=== PATIENT | male | born 1950 | race Caucasian/White ===

== ENCOUNTER → 2018-01-28 08:59 | Outpatient (CLI) | payer OTHER, SELFPAY ==
--- NOTE | 2018-01-28 | DI.RAD.S_ITS ---
PROCEDURE: FL WRIST INJECTION MR/CT RT INDICATIONS: OSTEOARTHRITIS TECHNIQUE: After informed consent had been obtained, the wrist was examined fluoroscopically, and a site chosen for injection of the radiocarpal compartment from a dorsal approach. Skin was prepped and draped in a sterile fashion and 1% lidocaine infiltrated from the skin down to the articular surface. A hypodermic needle was then introduced into the articular space and a modest amount of contrast medium was instilled confirming intra-articular needle tip placement. This was followed by approximately 4 mL of a dilute gadolinium solution. Needle was removed and dressing was applied. The patient experienced no complications throughout the procedure and left the fluoroscopic suite in no apparent distress. FINDINGS: A single fluoroscopic spot image demonstrates intra-articular location to injected iodinated contrast. IMPRESSION: Successful fluoroscopic-guided administration of dilute Gadolinium solution for wrist MR arthrogram. Dictated by: Reinier Brian M.D. on 01/28/2018 at 10:34 Approved by: Reinier Brian M.D. on 01/28/2018 at 10:34
--- NOTE | 2018-01-28 | DI.MRI.S_ITS ---
PROCEDURE: MR WRIST RT W CON INDICATIONS: OSTEOARTHRITIS TECHNIQUE: After the administration of 3-4 mL of dilute intra-articular Gadolinium contrast into the radiocarpal compartment, coronal T1 spin echo with fat saturation and T2 fast spin echo with fat saturation, axial T1 spin echo and T2 fast spin echo with fat saturation, sagittal T1 spin echo with and without fat saturation through the wrist. COMPARISON: None. FINDINGS: Image quality: Excellent. Bones and cartilage: The carpal bones are normally aligned. Mild osteoarthritic changes are noted throughout wrist joints with joint space narrowing and subchondral sclerosis/cyst formation throughout carpal bones. No bone marrow contusions or fractures. No evidence for avascular necrosis. Overlying cartilage surfaces appear normal. Carpal ligaments: There is a full-thickness rupture of dorsal and central component of scapholunate ligament with contrast extending to midcarpal compartment. The lunotriquetral ligament appears intact. The radioscaphocapitate and radiolunotriquetral ligaments appear intact. The arcuate ligament and short radiolunate ligament also appear normal. The dorsal intercarpal and radiotriquetral ligaments appear intact. On sagittal images, the pisohamate ligament appears intact. Triangular fibrocartilage complex: The triangular fibrocartilage disc, with its styloid and foveal lamina, appears intact. No gadolinium extravasation into the distal radioulnar joint. The adjacent meniscal homolog appears normal. The ulnar collateral ligament appears intact. The extensor carpi ulnaris tendon is normal in location and morphology. Tendons and soft tissues: The carpal tunnel structures appear normal, including the median nerve. The ulnar nerve appears normal within Guyon's canal. There is thickening and heterogeneous intrasubstance signal abnormality involving extensor carpi ulnaris tendon at the level of ulnar styloid suggestive of tendinosis and intrasubstance partial-thickness tear. Rest of the extensor tendon compartments demonstrate normal morphology, without pathologic tendon sheath fluid. No soft tissue ganglion cysts. IMPRESSION: 1. Full-thickness rupture involving dorsal and central component of scapholunate ligament with contrast extending to midcarpal compartment. Rest of wrist ligaments are grossly intact. 2. Tendinosis and low-grade intrasubstance partial-thickness tear involving extensor carpi ulnaris tendon at the level of ulnar styloid. 3. Osteoarthritic changes throughout wrist joints. No fracture or dislocation. 4. Triangular fibrocartilage complex is intact. Dictated by: Ozzie Santos M.D. on 01/28/2018 at 15:04 Approved by: Ozzie Santos M.D. on 01/28/2018 at 15:09
== END ==
PROVIDERS: Family Provider Internal Medicine; PCP Internal Medicine; Visit Provider Orthopaedic Surgery
DX: M18.10 Unilateral primary osteoarthritis of first carpometacarpal joint, unspecified hand (principal); M19.031 Primary osteoarthritis, right wrist; S63.391A Traumatic rupture of other ligament of right wrist, initial encounter
CPT/HCPCS: 20605; 73222; 77002

== ENCOUNTER 2024-07-08 13:44 | Emergency (ER) | payer MEDICARE, SELFPAY ==
[2024-07-08] VITALS (9 sets, daily range): BP systolic 141–164; BP diastolic 70–95; PULSE 78–91; RESP 16; TEMP 36.4; O2SAT 95–98; BMI 27.9
--- NOTE | 2024-07-08 14:12 | EKG_ITS ---
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
[2024-07-08 14:21] LABS: Appearance Urine UA CLOUDY; Bilirubin Urine UA NEGATIVE (NEGATIVE); Color Urine UA RED; Glucose Urine UA NEGATIVE (Negative); Ketones Urine UA TRACE (NEGATIVE); Leukocyte Esterase Urine UA NEGATIVE (NEGATIVE); Nitrite Urine UA NEGATIVE (Negative); Occult Blood Urine UA 2+ (Negative); Protein Urine UA 1+ (Negative); Urobilinogen Urine UA 0.2 E.U./dL (0.2)
[2024-07-08 14:23] LABS: Bacteria Urine None Seen; Culture Indicated Urine Cult Not Indicated; RBC Urine >100/HPF (0-5/HPF); Squamous Epithelial Cell Urine None Seen (0-5/HPF); Urine Volume 10mL (spun); WBC Urine 1-5/HPF (0-5/HPF)
--- NOTE | 2024-07-08 14:23 | ED.MALEGU ---
HPI - Male Genitourinary General Chief complaint: Urogenital-Male Stated complaint: Brown blood in Urine Time Seen by Provider: 07/08/24 14:12 Source: patient Mode of arrival: Ambulatory History of Present Illness HPI Narrative: Patient here with complains of dark urine with hematuria that is painless. Patient is a smoker. Patient has history of kidney stones but states does not feel like a kidney stone. Has low back pain bilaterally. Patient denies any frequency urgency or dysuria. Patient does have prior history of lithotripsy and ureteral stent. No prior history of prostate cancer or bladder cancer. Related Data Home Medications Medication Instructions Recorded Confirmed atenolol 25 mg tablet 25 mg PO QDAY ##0 11/10/11 cyclobenzaprine 10 mg tablet 10 mg PO TID ##0 11/10/11 diazepam 10 mg tablet 10 mg PO TID ##0 11/10/11 duloxetine 60 mg capsule,delayed 120 mg PO QDAY ##0 11/10/11 release (Cymbalta) lisinopril 20 mg tablet 20 mg PO BID ##0 11/10/11 glipizide 5 mg tablet 2.5 mg PO BID ##0 04/23/12 hydrocodone 7.5 mg-acetaminophen 1 tab PO Q6H PRN ##0 04/23/12 300 mg tablet (Vicodin ES) Previous Rx's Medication Instructions Recorded tamsulosin 0.4 mg capsule 0.4 mg PO DAILY #7 caps 07/08/24 Allergies Allergy/AdvReac Type Severity Reaction Status Date / Time Cefazolin Allergy Mild HIVES Uncoded 07/08/24 13:48 Review of Systems Review of Systems Narrative: GENERAL: Negative chills, fatigue, malaise, fever, sweats. HEENT: Negative sinus pain, ear pain, sore throat RESPIRATORY: Negative dyspnea, cough CARDIOVASCULAR: Negative chest pain, palpitations GASTROINTESTINAL: Negative vomiting, nausea, abdominal pain : Negative dysuria, frequency, positive hematuria MUSCULOSKELETAL: Negative muscle or bony pain SKIN: Negative rash, skin lesions NEUROLOGIC: Negative weakness, numbness ROS Unobtainable: All systems reviewed & are unremarkable except as noted in HPI and below Patient History Social History Smoking Status: Current every day smoker Smoking Status: Current every day smoker Alcohol type: beer and hard liquor Exam Narrative Exam Narrative: GENERAL: in no distress, not toxic not dyspneic HEAD: Normocephalic. EYES: Pupils equal round ENT: Mucous membranes moist. NECK: Trachea midline. CARDIOVASCULAR: Regular rate and rhythm RESPIRATORY: Clear to auscultation. Breath sounds equal bilaterally. No wheezes, rales, or rhonchi. GASTROINTESTINAL: Abdomen soft, non-tender abdomen is nontender no peritoneal signs bowel sounds are present. No guarding or rebound. No CVA tenderness, no suprapubic tenderness EXTREMITIES: No gross deformities. BACK: No flank tenderness. NEURO: AOx4. Clear speech SKIN: Warm and dry PSYCH: Not anxious, is cooperative Initial Vital Signs Initial Vital Signs: Vital Signs Temperature 97.5 F L 07/08/24 13:45 Pulse Rate 89 07/08/24 13:45 Respiratory Rate 16 07/08/24 13:45 Blood Pressure 142/95 H 07/08/24 13:45 Pulse Oximetry 98 07/08/24 13:45 Oxygen Delivery Method Room Air 07/08/24 13:45 Course Orders Ordered: Discontinued Medications Ondansetron HCl (Ondansetron 4 Mg/2 Ml Inj) 4 mg IV NOW PRN PRN Reason: Nausea And Vomiting Ondansetron HCl (Ondansetron 4 Mg Odt) 4 mg PO NOW PRN PRN Reason: Nausea And Vomiting Tamsulosin HCl (Tamsulosin 0.4 Mg Capsule) 0.4 mg PO NOW ONE Stop: 07/08/24 16:41 Last Admin: 07/08/24 16:49 Dose: 0.4 mg Documented By: SALINA Vital Signs Vital signs: Vital Signs - 8 hr 07/08/24 13:45 07/08/24 14:14 07/08/24 14:15 Temperature 97.5 F L Pulse Rate 89 91 H 91 H Respiratory Rate 16 Blood Pressure 142/95 H Pulse Oximetry 98 97 98 Oxygen Delivery Method Room Air 07/08/24 14:15 07/08/24 14:30 07/08/24 14:30 Temperature Pulse Rate 88 Respiratory Rate Blood Pressure 141/77 H 142/77 H Pulse Oximetry 98 Oxygen Delivery Method MDM - Male Genitourinary Lab Data 07/08/24 14:30 07/08/24 14:30 Labs: Lab Results 07/08/24 07/08/24 Range/Units 13:59 14:30 WBC 9.5 (4.5-11.0) X10^3/uL RBC 4.63 (4.5-5.9) X10^6/uL Hgb 14.5 (13.5-17.5) g/dL Hct 42.6 (41-53) % MCV 92.0 (80-100) fL MCH 31.4 (26-34) PG MCHC 34.1 (30-36) % RDW 14.1 (11.6-14.8) % Plt Count 250 (150-400) X10^3/uL Neut % (Auto) 72.0 (50-75) % Lymph % (Auto) 19.5 L (25-40) % [place] % (Auto) 6.2 (3-14) % Eos % (Auto) 1.1 L (2-4) % Baso % (Auto) 1.2 (0-2) % Neut # (Auto) 6800 (0067-4252) /uL Lymph # (Auto) 1900 (7773-7516) /uL [place] # (Auto) 600 (0-900) /uL Eos # (Auto) 100 (0-450) /uL Baso # (Auto) 100 (0-100) /uL Sodium 138 (137-145) mmol/L Potassium 4.4 (3.4-5.1) mmol/L Chloride 100 (98-107) mmol/L Carbon Dioxide 30 (22-32) mmol/L BUN 27 H (9-20) mg/dL Creatinine 1.08 (0.66-1.25) mg/dL Estimated GFR > 60 (>60) mL/min BUN/Creatinine Ratio 25.0 H (6-22) Glucose 211 H (70-99) mg/dL Calcium 9.4 (8.4-10.2) mg/dL Total Bilirubin 0.5 (0.2-1.3) mg/dL AST 24 (17-59) IU/L ALT 22 (<50) IU/L Alkaline Phosphatase 79 (38-126) U/L Total Protein 7.2 (6.3-8.2) g/dL Albumin 4.4 (3.5-5.0) g/dL Globulin 2.8 (1.7-4.1) g/dL Albumin/Globulin Ratio 1.6 (1.0-2.8) Lipase Cancelled Urine Color Red Urine Appearance Cloudy Urine pH 6.0 (4.5-8.0) Ur Specific [place] 1.020 (1.000-1.035) Urine Protein 1+ H (Negative) Urine Glucose (UA) Negative (Negative) g/dL Urine Ketones Trace H (NEGATIVE) Urine Occult Blood 2+ H (Negative) Urine Nitrate Negative (Negative) Urine Bilirubin Negative (NEGATIVE) Urine Urobilinogen 0.2 (0.2) E.U./dL Ur Leukocyte Esterase Negative (NEGATIVE) Urine RBC >100/hpf H (0-5/HPF) Urine WBC 1-5/hpf (0-5/HPF) Ur Squamous Epith Cells None seen (0-5/HPF) Urine Bacteria None seen (None) Ur Culture Indicated? Cult not indicated Vol Urine Centrifuged 10ml (spun) Imaging Data CT scan - abdomen/pelvis: Radiologist's Impression: [address] [address] [address] Scan Report Signed Patient: Walter Florez MR#: [id number] : 1950 Acct:[id number] Age/Sex: 73 / M Date of Service: 07/08/24 Loc: ED Accession Number: [id number] Procedure: CT kidney ureter bladder (KUB) Ordering Provider: Isaac Lara MD PROCEDURE: CT KIDNEY URETER BLADDER (KUB) INDICATIONS: Hematuria TECHNIQUE: Axial sections were acquired from the lung bases to the pubic symphysis. Coronal and sagittal reformats were performed. For radiation dose reduction, the following was used: automated exposure control, adjustment of mA and/or kV according to patient size. COMPARISON: None. FINDINGS: Image quality: Diagnostic. Lower Chest: Subpleural blebs in the anterior right middle lobe. URINARY: Right Kidney: No stones or hydronephrosis. Simple renal cysts. Right Ureter: No hydroureter. Left Kidney: Moderate hydronephrosis. Multiple nonobstructing calculi, largest of which measures up to 7 mm (500 Hounsfield units). Left Ureter: 3 tiny calculi are seen in the left proximal ureter, the largest of which measures 4 mm. The distal ureter is decompressed. Bladder: Normal wall thickness. No stones. ABDOMEN: Liver: No contour-deforming solid mass. Gallbladder: No radiopaque gallstones or wall thickening. Biliary ducts: No biliary dilation. Pancreas: No ductal dilation. Spleen: Size is within normal limits. Adrenal Glands: No adrenal nodules. Stomach and Bowel: Multiple diverticula are seen in the colon without signs of acute diverticulitis. Normal appendix. Small bowel loops and stomach are unremarkable. Peritoneum: No abnormal intraperitoneal fluid. No free air. Ventral Wall: No hernia. Abdominal Nodes: No enlarged retroperitoneal or mesenteric lymph nodes. Vessels: Aorta and inferior vena cava are normal in size. PELVIS: Pelvic Organs: Unremarkable. Pelvic Nodes: Unremarkable. Miscellaneous: Small fat containing left inguinal hernia. Bones: Degenerative changes are seen in the included spine. IMPRESSION: 1. Three small calculi at the left ureterovesicular junction measuring up to 4 mm with moderate left hydronephrosis. 2. Multiple additional nonobstructing left renal calculi. Approved by: Glen Mendoza M.D. on 07/08/2024 at 15:53 MDM Narrative Medical decision making narrative: Patient here with complains of dark urine with hematuria that is painless. Patient is a smoker. Patient has history of kidney stones but states does not feel like a kidney stone. Has low back pain bilaterally. Patient denies any frequency urgency or dysuria. Patient does have prior history of lithotripsy and ureteral stent. No prior history of prostate cancer or bladder cancer. After history and exam, CBC CMP urinalysis CT [facility] Medical records reviewed: No recent visit for this complaint Differential considered: Includes but not limited to UTI kidney stone cystitis bladder cancer prostate cancer renal cyst renal cancer Lab Test results independently reviewed as above. Pertinent findings: Urinalysis positive blood negative leukocyte esterase negative nitrate, WBC 9.5 hemoglobin 14.5 sodium 138 potassium 4.4 BUN 27 creatinine 1.08 GFR greater than 60 Independently reviewed EKG sinus rhythm rate 82 Imaging studies independently reviewed: CT KUB 3 punctate stones at the UVJ with hydronephrosis. Consultations: None indicated at this time Re-evaluations: 4:41 p.m.. Patient remains pain-free. Reviewed with him kidney stones found at the UVJ. He was surprised. He is painless. Return precautions reviewed. Referral for Urology will be provided. Pain is controlled he does not want any pain medications. Flomax will be provided. He agrees with that. He desires discharge home. Discussion: Appropriate for discharge home. Exam and laboratory studies are reassuring. Return precautions reviewed with patient. He desires discharge home. Diagnosis: Ureteral stone Discharge Plan Departure Patient Disposition: Home Clinical Impression: Left ureteral calculus Instructions: DI for Kidney Stones Activity Restrictions/Additional Instructions: Your results showed that you do have a few kidney stones that she would be able to pass, they are above your bladder at this time. Please keep well hydrated. Return if worse if any questions or concerns. Call provided urology office on Thursday for follow up next week. Return if worse if any questions or concerns. Prescriptions: New tamsulosin 0.4 mg capsule 0.4 mg PO DAILY Qty: 7 0RF No Action lisinopril 20 MG tablet 20 mg PO BID Qty: 0 atenolol 25 MG tablet 25 mg PO QDAY Qty: 0 diazepam 10 MG tablet 10 mg PO TID Qty: 0 duloxetine [Cymbalta] 60 MG capsule,delayed release(DR/EC) 120 mg PO QDAY Qty: 0 cyclobenzaprine 10 MG tablet 10 mg PO TID Qty: 0 glipizide 5 MG tablet 2.5 mg PO BID Qty: 0 hydrocodone-acetaminophen [Vicodin ES] 7.5 MG/300 MG tablet 1 tab PO Q6H PRNQty: 0 Referrals: David Day DO [Physician] - Isaac Leon DO [Primary Care Provider] - Stand Alone Forms: Patient Portal/API/Survey
[2024-07-08 14:47] LABS: Add Manual Diff / Slide Review NO; Basophils Absolute Auto 100 /uL (0-100); Basophils Percent Auto 1.2 % (0-2); Eosinophils Absolute Auto 100 /uL (0-450); Eosinophils Percent Auto 1.1 % (2-4); Hematocrit 42.6 % (41-53); Hemoglobin 14.5 g/dL (13.5-17.5); Lymphocytes Absolute Auto 1900 /uL (1100-4500); Lymphocytes Percent Auto 19.5 % (25-40); Mean Corpuscular HGB Conc 34.1 % (30-36); Mean Corpuscular Hemoglobin 31.4 PG (26-34); Monocytes Absolute Auto 600 /uL (0-900); Monocytes Percent Auto 6.2 % (3-14); Neutrophils Absolute Auto 6800 /uL (1500-7000); Platelet Count 250 X10^3/uL (150-400); Red Blood Cell Count 4.63 X10^6/uL (4.5-5.9); Red Cell Distribution Width 14.1 % (11.6-14.8); White Blood Cell Count 9.5 X10^3/uL (4.5-11.0)
[2024-07-08 14:56] LABS: Alanine Aminotransferase 22 IU/L (<50); Albumin 4.4 g/dL (3.5-5.0); Albumin Globulin Ratio 1.6 (1.0-2.8); Alkaline Phosphatase 79 U/L (38-126); Aspartate Aminotransferase 24 IU/L (17-59); Bilirubin Total 0.5 mg/dL (0.2-1.3); Blood Urea Nitrogen 27 mg/dL (9-20); Calcium 9.4 mg/dL (8.4-10.2); Carbon Dioxide 30 mmol/L (22-32); Chloride 100 mmol/L (98-107); Estimated Glomerular Filt Rate > 60 mL/min (>60); Globulin 2.8 g/dL (1.7-4.1); Glucose 211 mg/dL (70-99); HEMOLYSIS 22 (0-50); Potassium 4.4 mmol/L (3.4-5.1); Sodium 138 mmol/L (137-145); Total Protein 7.2 g/dL (6.3-8.2)
[2024-07-08] MEDS: TAMSULOSIN 0.4 MG CAPSULE PO (16:49)
== END 2024-07-08 16:59 | disposition home or self-care (01) ==
PROVIDERS: Emergency Provider Emergency Medicine; Family Provider Internal Medicine; PCP Family Medicine
DX: N20.1 Calculus of ureter (principal); M54.50 Low back pain, unspecified; Z87.442 Personal history of urinary calculi
CPT/HCPCS: 36415; 74176; 80053; 81001; 85025; 93005; 93010; 99283; 99284